=== PATIENT | male | born 1975 | race African-American/Black ===

== ENCOUNTER 2016-12-02 07:42 | Emergency (ER) | payer OTHER ==
[~2016-12-02] VITALS: Ht 185.4 cm; Wt 90.0 kg
[2016-12-02 07:45] VITALS: Ht 185.4 cm; Wt 90.0 kg
[2016-12-02] MEDS ORDERED: HYDROCODONE/APAP (10/325) TAB PO ONE (08:30)
[2016-12-02] MEDS ORDERED: IBUPROFEN 600 MG TAB PO ONE (08:30)
--- NOTE | 2016-12-02 08:38 | RADRPT ---
PROCEDURE: XR cervical spine CLINICAL INDICATION: Pain times 1 hour TECHNIQUE: 3 standard radiographs were obtained of the cervical spine. COMPARISON: None FINDINGS: Alignment: There is straightening of the normal lordotic curvature to the cervical spine and the hea d is tilted leftward with no subluxation evident. The atlantoaxial relationship appears normal Disk spaces: are well maintained Osseous structures : appear intact with no fracture or destructive process identified. There is mini mal anterior spondylosis. There is mild posterior spondylosis off the endplates at C5-C6. Soft tissues: are unremarkable. IMPRESSION: 1. Straightening of the normal lordotic curvature to the cervical spine with a leftward head tilt. 2. Minimal anterior spondylosis. There is mild posterior spondylosis off the endplates at C5-6. Physician Vamsi Date Time Electronically viewed and signed by Physician Vamsi on 12/02/2016 08:37 /
[2016-12-02] MEDS ORDERED: HYDR-906 PO (08:48)
[2016-12-02] MEDS ORDERED: IBUP-1542 PO (08:48)
--- NOTE | 2016-12-02 08:52 | ERD ---
ER Documentation Chief Complaint Date/Time DATE: 12/02/16 TIME: 08:50 Chief Complaint Neck pain HPI This 41-year-old male presents with sudden onset of right neck pain while riding the bus today. Denies any specific inciting event such as rapid movement recent MVA or trauma. Denies any bowel bladder incontinence, weakness , fevers, cough, shortness breath chest pain. Patient is a remote history of neck injury or fracture without surgery. ROS All systems reviewed and are negative except as per history of present illness. Medications Home Meds Active Scripts Hydrocodone/Acetaminophen ([place] 5-325 Tablet) 1 Each Tablet, 1 TAB PO Q6H Y for PAIN, #7 TAB Prov:MARITZA PARRY MD 12/02/16 Ibuprofen* (Motrin*) 600 Mg Tab, 600 MG PO Q6, #20 TAB Prov:MARITZA PARRY MD 12/02/16 PMhx/Soc Medical and Surgical Hx: pt denies Medical Hx, pt denies Surgical Hx Hx Alcohol Use: Yes Hx Substance Use: No Hx Tobacco Use: No Smoking Status: Never smoker Physical Exam Vitals Vital Signs Date Time Temp Pulse Resp B/P Pulse Ox O2 Delivery O2 Flow Rate FiO2 12/02/16 07:45 97.8 76 18 136/88 99 Physical Exam Const: [] Alert, [id number] per Head: Atraumatic Eyes: Normal Conjunctiva ENT: Normal External Ears, Nose and Mouth. Neck: Full range of motion..~ No meningismus. Tenderness in the right cervical paraspinous muscles approximately C4. No midline tenderness or deformities. No pulsatile masses. No anterior neck tenderness. Resp: Clear to auscultation bilaterally Cardio: Regular rate and rhythm, no murmurs Abd: Soft, non tender, non distended. Normal bowel sounds Skin: No petechiae or rashes Back: No midline or flank tenderness Ext: No cyanosis, or edema Neur: Awake and alert Psych: Normal Mood and Affect Results 24 hrs Current Medications Medications (Trade) Dose Ordered Sig/Jeremiah Route PRN Reason Start Time Stop Time Status Last Admin Dose Admin Acetaminophen/ Hydrocodone Bitart ([place] (10/325)) 1 tab ONCE ONCE PO 12/02/16 08:30 12/02/16 08:31 DC 12/02/16 08:14 Ibuprofen (Motrin) 600 mg ONCE ONCE PO 12/02/16 08:30 12/02/16 08:31 DC 12/02/16 08:13 Procedures/MDM X-ray C spine 3V Interpreted by me: Bones: No fracture Joints: No dislocation Foreign body: None. Impression-no acute findings on C-spine x-ray Patient was given [place] and ibuprofen here in the ED for pain. Patient presents with right-sided neck pain of uncertain etiology without signs or symptoms to suggest carotid dissection, fracture, dislocation, bacterial infection, neurologic deficit. Patient's hospital course was significant for no apparent pain or restricted range of motion when distracted with intermittent pain during examination or in the presence of provider. Patient was placed in a soft c-collar for comfort and will discharged home with primary care follow-up. Patient is advised to return for fevers, chest pain, shortness of breath, new or worsening symptoms Departure Diagnosis: Primary Impression: Neck pain Condition: Stable Patient Instructions: Neck Pain, No Trauma Additional Instructions: No acute findings seen on x-ray. See primary doctor follow-up or return for fevers, shortness breath, new symptoms MARITZA PARRY MD Dec 02, 2016 08:52
== END 2016-12-02 09:11 | disposition home or self-care (01) ==
LOC: FTE 07:42
DX: M54.2 Cervicalgia (principal)
CPT/HCPCS: 72040; Z7502; Z7610